=== PATIENT | male | born 1960 | race African-American/Black ===

== ENCOUNTER 2018-07-30 05:11 | Inpatient (IN) | payer OTHER ==
[2018-07-30 06:07] LABS: ALT (SGPT) 49 U/L (8-55); AST (SGOT) 59 U/L (5-34); Acetaminophen Less than 6.0 mcg/mL (10.0-30.0); Alcohol Less than 10 mg/dL (Less than 10); Alkaline Phosphatase 97 U/L (40-150); Anion Gap 14 mmol/L (10-20); BUN (Urea Nitrogen) 15 mg/dL (8.4-25.7); Bilirubin, Total 1.1 mg/dL (0.2-1.2); Calc. Creatinine Clearance 0 mL/min (70-130); Calcium 8.6 mg/dL (7.8-10.44); Carbon Dioxide 21 mmol/L (22-29); Chloride 103 mmol/L (98-107); Estimated GFR-MDRD 60; Globulin 5.2 g/dL (2.4-3.5); Glucose 107 mg/dL (70-105); Potassium 4.3 mmol/L (3.5-5.1); Protein, Total 8.2 g/dL (6.0-8.3); Salicylate Less than 8.0 mg/dL (15.0-30.0); Sodium 134 mmol/L (136-145)
[2018-07-30 06:09] LABS: #Monocytes 0.8 thou/uL (0.11-0.59); #Neutrophils 3.8 thou/uL (1.40-6.50); %Basophils 0.3 % (0.0-1.0); %Eosinophils 0.6 % (0.0-10.0); %Lymphocytes 17.4 % (21.0-51.0); %Monocytes 14.1 % (0.0-10.0); %Neutrophils 67.5 % (42.0-75.0); Mean Corpuscular HGB CONC 32.7 g/dL (32.0-36.0); Mean Corpuscular Hemoglobin 30.8 pg (27.0-31.0); Mean Platelet Volume 9.5 fL (7.4-10.4); PLT Morphology Comment Appears Decreased; Platelet Count 77 thou/uL (130-400); RBC Distribution Width 13.2 % (11.5-14.5); Red Blood Cell (RBC) Count 3.57 mill/uL (4.70-6.10); White Blood Cell (WBC) Count 5.6 thou/uL (4.8-10.8)
[2018-07-30 06:22] LABS: Bilirubin Negative (Negative); Blood, Urine Large (Negative); Clarity CLOUDY (Clear); Glucose, Urine (Dipstick) Negative (Negative); Leukocyte Large (Negative); Nitrite Negative (Negative); Protein, Urine (Dipstick) Negative (Neg-Trace); Urobilinogen 0.2 mg/dL (0.2-1.0)
[2018-07-30 06:23] LABS: Bacteria/HPF None Seen HPF (None Seen); Hyaline Casts/LPF 7-10 HYALINE CAST LPF (0-3 Hyaline); Pathc Cast-AUWi Flag 1.01 (0-2.49); RBC/HPF GREATER THAN 50-TNTC HPF (0-3); Squamous Epithelial 0-3 HPF (0-3)
[2018-07-30 06:26] LABS: INR-International Normal Ratio 1.3; Prothrombin Time 15.8 SEC (12.0-14.7)
[2018-07-30 06:34] LABS: Amphetamine Not Detected (NotDetected); Barbiturates Screen Not Detected (NotDetected); Benzodiazepine Screen Not Detected (NotDetected); Cocaine Metabolite Screen Not Detected (NotDetected); Medtox Control Line Valid? VALID (VALID); Medtox Reader # READER 4; Methadone Not Detected (NotDetected); Methamphetamine Not Detected (NotDetected); Opiate Screen Not Detected (NotDetected); Oxycodone Screen Not Detected (NotDetected); Phencyclidine (PCP) Not Detected (NotDetected); THC/Cannabinoid Screen Not Detected (NotDetected); Tricyclic Screen Not Detected (NotDetected)
--- NOTE | 2018-07-30 10:01 | CT ---
PRELIMINARY REPORT/[facility]/EMERGENTY AFTER-HOURS PROCEDURE CT Head Without Contrast EXAM DATE/TIME: 07/30/2018 5:23 AM CLINICAL HISTORY: 57 years old, male; Signs and symptoms; Altered mental status/memory loss; Confusion or disorientatio n; Patient HX: [id number] presents to ed from [facility] for evaluation of AMS first noted at approx. 0300 today . Ems reports that PT is normally a/o x 4 but is currently only a/o x 1. Ems reports that PT received his daily medications at 0200, and has a HX of stroke TECHNIQUE: Axial computed tomography images of the head/brain without contrast. COMPARISON: No relevant prior studies available. FINDINGS: Brain: Normal. No hemorrhage. No significant white matter disease. No edema. Ventricles: Normal. No ventriculomegaly. Bones/joints: Normal. No acute fracture. Sinuses: Normal as visualized. No acute sinusitis. Mastoid air cells: Normal as visualized. No mastoid effusion. Soft tissues: Normal. IMPRESSION: No acute intracranial hemorrhage. Thank you for allowing us to participate in the care of your patient. Dictated and Authenticated by: George Mccracken MD 07/30/2018 5:35 AM Central Time ([place] & [place]) FINAL REPORT CT BRAIN WITHOUT CONTRAST: Date: 07/30/18 FINDINGS/IMPRESSION: I agree with the preliminary report given by Stefan. POS: [facility]
[2018-07-30] MEDS ORDERED: Ondansetron PF 4 MG/2 ML Vial IVP PRN (10:05)
[2018-07-30] MEDS ORDERED: Ondansetron ODT 4 MG TAB SL PRN (10:05)
[2018-07-30] MEDS ORDERED: Acetaminophen 325 MG TAB PO PRN (10:05)
[2018-07-30] MEDS ORDERED: Sodium Chloride 0.9% 1,000 ML IV SCH (10:05)
[2018-07-30] MEDS ORDERED: traMADol HCl 50 MG TAB PO PRN (10:15)
[2018-07-30] MEDS ORDERED: hydrALAZINE 20 MG/ML VIAL SLOW IVP PRN (10:15)
[2018-07-30] MEDS: Sodium Chloride 0.9% 1,000 ML IV SCH (11:50)
[2018-07-30] MEDS: cefTRIAXone\\ROCEPHIN 1 GM in Sodium Chloride 0.9% 100 ML IVPB SCH (11:50)
[2018-07-30 11:59] VITALS: BMI 20.5
[2018-07-30] MEDS ORDERED: Sodium Bicarbonate 2.5 MEQ/5 ML VIAL ONE (12:54)
--- NOTE | 2018-07-30 13:54 | HP ---
The patient is a [facility] patient. CHIEF COMPLAINT: Altered mental status. HISTORY OF PRESENT ILLNESS: The history of present illness is very limited as the patient is currently confused and unable to give me any history and the guards, who are with the patient are unfamiliar about his history, but apparently he was in the [facility] and is usually oriented to person, place, and time, but was only oriented to his self. When I see him, he answers yes kishor to any questions that I ask him. He was able to answer maybe 1 or 2 questions, but it is unclear if these answers are reliable. He has a history of cirrhosis, according to the records that came with him from the [place]. He appears to be on lactulose and Rifaximin and it appears as if he is likely in hepatic encephalopathy. His serum ammonia level was elevated at 85 and he is being admitted for hepatic encephalopathy. He does tend to indicate that he has some abdominal discomfort, but there has been no fever recorded and there is also concern for possible ascites and SVT. Otherwise, no other history is obtainable. REVIEW OF SYSTEMS: Unobtainable as the patient is confused. PAST MEDICAL HISTORY: Taken from his records and includes hepatitis C, cirrhosis with thrombocytopenia, history of inguinal hernia, latent syphilis, hypertension, and osteoarthritis. PAST SURGICAL HISTORY: Unknown. ALLERGIES: NO KNOWN DRUG ALLERGIES THAT ARE KNOWN. SOCIAL HISTORY: Unknown. FAMILY HISTORY: Also unobtainable due to him being confused. MEDICATIONS: Medications are taken from the emergency room records and include; 1. Rifaximin 600 mg twice a day. 2. Aldactone 25 mg daily. 3. Osmolite daily. 4. Omeprazole 20 mg daily. 5. Lactulose 60 mL 4 times a day. 6. Lasix 60 mg twice a day. 7. Bisacodyl 5 mg daily. PHYSICAL EXAMINATION: GENERAL: He is alert, but disoriented. I am unable to get him to answer questions related to where he is, what year, date, etc. He is very cachectic and has temporal muscle wasting. VITAL SIGNS: The blood pressure is 156/93, heart rate 95, respiratory rate of 16, temperature is 98.8, and O2 saturation is 100% on room air. HEENT: Pupils are equal, round, and reactive. Extraocular muscles are intact. His sclerae are pale and anicteric. Throat, he has poor dentition. Normal mucous membranes. NECK: There is no adenopathy. No bruits. LUNGS: Clear to auscultation. There is no wheezing. No rales. No rhonchi. CARDIOVASCULAR: He had a normal S1 and S2. I did not appreciate an S3 or S4. No murmurs, clicks, or rubs. ABDOMEN: Distended, slightly tender to palpation. He did have some voluntary guarding. There is no rebound. EXTREMITIES: He has chronic venostasis changes. Just trace brawny nonpitting edema. He has significant muscle wasting in his lower extremities. NEUROLOGIC: He is again confused, oriented to person only. However, his muscle strength is intact in his upper and lower extremities. SKIN AND INTEGUMENT: He does have again chronic venostasis changes, some areas of hyperpigmentation and hypopigmentation on the dorsum of the foot. LAB RESULTS: Sodium is 134, potassium 4.3, chloride is 103, CO2 is 21, BUN of 15, creatinine 1.23, and glucose is 107. Urinalysis was positive for leukocyte esterase as well as blood. Urine drug screen was negative. Ammonia was 85. White blood cell count 5.6, hemoglobin 11, hematocrit is 33.6, and platelet count was 77. He had a CT scan of the brain, which by my reading, there is no acute intracranial abnormality. ASSESSMENT AND PLAN: 1. This is a pleasant 57-year-old gentleman, who presents with hepatic encephalopathy. He has been started on lactulose in the emergency room. We will continue the oral lactulose and Rifaximin as tolerated. We will also get an abdominal ultrasound and should there be significant ascites, we will get a diagnostic and possibly therapeutic paracentesis if fluid is again present. Once he is more alert and awake, we can restart his other medications and then hopefully obtain more history to see what may have triggered this event. 2. Hypertension. We will place him on p.r.n. medications until he is more reliably able to take p.o. 3. For deep venous thrombosis prophylaxis, we will place him on sequential compression devices as he has some mild INR elevation and thrombocytopenia, therefore, we will hold off on Lovenox. Job ID: [id number]
--- NOTE | 2018-07-30 14:44 | ULT ---
ULTRASOUND ABDOMEN LIMITED: 07/30/2018 HISTORY: A 57-year-old male with ascites and abdominal pain. COMPARISON: No prior imaging studies of the abdomen. TECHNIQUE: Four-quadrant survey of the abdominal cavity, plus single midline image. FINDINGS: There is a very small amount of free fluid in the peritoneal cavity, greatest in the left lower quadr ant, followed by the right lower quadrant. There is a tiny amount in the images of the right upper q uadrant and midline. No free fluid is demonstrated in the image of the left upper quadrant. IMPRESSION: Very small amount of ascites. POS: BEL
--- NOTE | 2018-07-30 15:55 | RAD ---
SUPINE AND LEFT LATERAL DECUBITUS ABDOMEN: Date: 07-30-18 History: Abdominal pain and abdominal distention. FINDINGS: There is nonspecific stool and gas filled loops of both small and large bowel. Bowel gas pattern is o verall nonspecific. Calcifications overlie the pelvis likely due to vascular type calcifications and phleboliths. Mild degenerative changes are seen in the spine. Metallic densities overlie the most low er pelvis, probably related to overlying artifact. IMPRESSION: Nonspecific bowel gas pattern. POS: [facility]
[2018-07-30] MEDS ORDERED: Phenazopyridine HCl 97.5 MG TABLET PO PRN (17:45)
[2018-07-30] MEDS: Rifaximin 550 MG TAB PO SCH (21:02)
[2018-07-31] MEDS: Sodium Chloride 0.9% 1,000 ML IV SCH (03:06)
[2018-07-31 07:43] LABS: Anion Gap 11 mmol/L (10-20); BUN (Urea Nitrogen) 13 mg/dL (8.4-25.7); Calc. Creatinine Clearance 91 mL/min (70-130); Calcium 8.3 mg/dL (7.8-10.44); Carbon Dioxide 21 mmol/L (22-29); Chloride 105 mmol/L (98-107); Estimated GFR-MDRD Greater than 90; Glucose 88 mg/dL (70-105); Potassium 3.7 mmol/L (3.5-5.1); Sodium 133 mmol/L (136-145)
[2018-07-31 09:20] LABS: Band 2 % (5-11); Hemoglobin 10.3 g/dL (14.0-18.0); Lymphocytes 32 % (21-51); MDiff Complete? YES; Mean Corpuscular HGB CONC 33.7 g/dL (32.0-36.0); Mean Corpuscular Hemoglobin 30.9 pg (27.0-31.0); Mean Corpuscular Volume 91.5 fL (78.0-98.0); Mean Platelet Volume 9.4 fL (7.4-10.4); Monocytes 15 % (0-10); Neutrophil 51 % (42-75); PLT Morphology Comment Appears Decreased; Platelet Count 69 thou/uL (130-400); Polychromasia SLIGHT = 2-3 cells (100X) (0-2/hpf); RBC Distribution Width 13.1 % (11.5-14.5); Red Blood Cell (RBC) Count 3.34 mill/uL (4.70-6.10); White Blood Cell (WBC) Count 3.7 thou/uL (4.8-10.8)
[2018-07-31] MEDS: Rifaximin 550 MG TAB PO SCH (09:36)
[2018-07-31 11:12] VITALS: BP 120/79; TEMP 97.8
[2018-07-31] MEDS: cefTRIAXone\\ROCEPHIN 1 GM in Sodium Chloride 0.9% 100 ML IVPB SCH (11:42)
--- NOTE | 2018-07-31 12:03 | PDOC.PN ---
- Subjective Encounter Start Date: 07/31/18 Encounter Start Time: 12:02 Mr. Calderon was seen today in follow-up of Hepatic encephalopathy. He is back to his baseline. He denies any abdominal pain today - Objective Resuscitation Status - Order Detail: 07/30/18 09:14 Resuscitation Status Routine Resuscitation Status: FULL: Full Resuscitation MAR Reviewed: Yes Vital Signs & Weight: Vital Signs (12 hours) Temp Pulse Resp BP Pulse Ox 07/31/18 11:12 97.8 F 67 20 120/79 100 07/31/18 08:00 100 07/31/18 07:33 98.2 F 80 18 122/80 100 07/31/18 01:50 97.9 F 84 18 117/69 100 Weight Weight 151 lb 3.2 oz I&O: 07/30/18 07/31/18 08/01/18 06:59 06:59 06:59 Intake Total 910 Output Total 350 Balance 560 Result Diagrams: 07/31/18 06:08 07/31/18 06:08 Phys Exam - Physical Examination HEENT: PERRLA Respiratory: no wheezing, no rales, no rhonchi, clear to auscultation bilateral Cardiovascular: RRR, no significant murmur, no rub Gastrointestinal: soft, non-tender, positive bowel sounds + mildly distended Musculoskeletal: no edema, pulses present Dx/Plan (1) Hepatic encephalopathy Code(s): K72.90 - HEPATIC FAILURE, UNSPECIFIED WITHOUT COMA Status: Acute (2) Cirrhosis Code(s): K74.60 - UNSPECIFIED CIRRHOSIS OF LIVER Status: Chronic (3) Malnutrition of moderate degree Code(s): E44.0 - MODERATE PROTEIN-CALORIE MALNUTRITION Status: Chronic (4) Hepatitis C Code(s): B19.20 - UNSPECIFIED VIRAL HEPATITIS C WITHOUT HEPATIC COMA Status: Chronic - Plan * Hepatic Encephalopathy- suspect he decompensated due to dehydration * He is stable for discharge - same medications.
--- NOTE | 2018-07-31 16:22 | DIS ---
DATE OF ADMISSION: 07/30/2018 DATE OF DISCHARGE: 07/31/2018 DISCHARGE DISPOSITION: Back to [facility]. DISCHARGE DIAGNOSES: 1. Hepatic encephalopathy. 2. Cirrhosis of the liver. 3. Hepatitis C. 4. Hypertension. 5. Moderate protein-calorie malnutrition. DISCHARGE MEDICATIONS: There was no change in his medications. He is to continue; 1. Spironolactone 100 mg twice daily. 2. Rifaximin 600 mg twice a day. 3. Omeprazole 20 mg daily. 4. Osmolite 3 times a day. 5. Lactulose 60mL q.i.d. 6. Lasix 60 mg twice daily. 7. Dulcolax 5 mg as needed. IMAGING STUDIES: The patient had a CT scan of the brain, which was negative. PROCEDURE DONE: An ultrasound-guided paracentesis was attempted, however, the patient did not have any evidence of ascites; therefore, this was aborted. CODE STATUS: Full code. ALLERGIES: NO KNOWN DRUG ALLERGIES. HOSPITAL COURSE: Mr. Calderon is a 57-year-old gentleman, who was sent over from the [facility] due to altered mental status. He was lethargic and repeating the same things over. He was found to have an elevated ammonia level at 85. He was treated with lactulose. He was empirically treated for possible SBP; however, it was later found that he did not have any significant ascites. An abdominal x-ray was done, which was negative for any evidence of obstruction. After being treated with lactulose, he clinically improved and was subsequently able to be discharged back to the [facility] in stable condition. It is suspected that his decompensation was likely related to dehydration. Job ID: [id number]
--- NOTE | 2018-08-04 12:37 | EKG ---
Test Reason : AMS Blood Pressure : / mmHG Vent. Rate : 087 BPM Atrial Rate : 087 BPM P-R Int : 116 ms QRS Dur : 076 ms QT Int : 366 ms P-R-T Axes : 036 009 027 degrees QTc Int : 440 ms Normal sinus rhythm Normal ECG Confirmed by JOYCELYN SALCIDO ([id number]), editorial cartoonist MATT BIRD ([id number]) on 08/04/2018 12:37:30 PM Referred By: Confirmed By:JOYCELYN SALCIDO
== END 2018-07-31 15:05 | DRG 442 ==
LOC: ERS 05:11 → T4-B 08:29
PROVIDERS: ADMIT Internal Medicine; ATTEND Internal Medicine
DX: K72.90 Hepatic failure, unspecified without coma (principal); E44.0 Moderate protein-calorie malnutrition; I10 Essential (primary) hypertension; Z68.20 Body mass index [BMI] 20.0-20.9, adult; B19.20 Unspecified viral hepatitis C without hepatic coma; E86.0 Dehydration
CPT/HCPCS: 36415; 51701; 70450; 74019; 76705; 80048; 80053; 80306; 80307; 81003; 81015; 82140; 84484; 85025; 85610; 85730; 93005; J0696; J7050